=== PATIENT | female | born 1990 | race Caucasian/White ===

== ENCOUNTER 2022-08-09 20:36 | Emergency (ER) | payer OTHER, SELFPAY ==
--- NOTE | ~2022-08-09 | XR_ITS ---
EXAMINATION: AP PELVIS AND RIGHT HIP. LEFT SHOULDER. CLINICAL INFORMATION: Fall with shoulder pain and right hip pain. COMPARISON: None TECHNIQUE: AP pelvis and right hip 3 views. Left shoulder 3 views. FINDINGS: Left shoulder: There is no visible acute fracture, dislocation or subluxation seen. The glenohumeral and AC joint space is maintained normal. The soft tissues are normal. AP pelvis and right hip: There is normal symmetry of bilateral hip joints and SI joints. No visible acute fracture or dislocation seen. 2 views of right hip reveal no fracture or dislocation. The soft tissues are normal. XR/XR hip RT w PEL1V IMPRESSION: 1. Unremarkable left shoulder exam. 2. Unremarkable AP pelvis and right hip exam. No visible acute fracture or dislocation seen.
--- NOTE | ~2022-08-09 | XR_ITS ---
EXAMINATION: AP PELVIS AND RIGHT HIP. LEFT SHOULDER. CLINICAL INFORMATION: Fall with shoulder pain and right hip pain. COMPARISON: None TECHNIQUE: AP pelvis and right hip 3 views. Left shoulder 3 views. FINDINGS: Left shoulder: There is no visible acute fracture, dislocation or subluxation seen. The glenohumeral and AC joint space is maintained normal. The soft tissues are normal. AP pelvis and right hip: There is normal symmetry of bilateral hip joints and SI joints. No visible acute fracture or dislocation seen. 2 views of right hip reveal no fracture or dislocation. The soft tissues are normal. XR/XR shoulder LT min 2V IMPRESSION: 1. Unremarkable left shoulder exam. 2. Unremarkable AP pelvis and right hip exam. No visible acute fracture or dislocation seen.
--- NOTE | 2022-08-09 20:40 | ED_ITS ---
HPI - Fall General Chief Complaint: General Medical <EVELINA Melchor - Last Filed: 08/09/22 20:49> Stated Complaint: fall, shoulder pain <EVELINA Melchor - Last Filed: 08/09/22 20:49> Time Seen by Provider: 08/09/22 21:56 <EVELINA Melchor - Last Filed: 08/09/22 20:49> Source: patient <Saumya Soria MD - Last Filed: 08/09/22 22:10> Mode of arrival: ambulatory <Saumya Soria MD - Last Filed: 08/09/22 22:10> Limitations: no limitations <Saumya Soria MD - Last Filed: 08/09/22 22:10> History of Present Illness HPI Narrative: Patient comes to the emergency room complaining of right hip pain and left shoulder pain after falling down the stairs. Patient states that approximately 24 hours ago, patient was ready to go to work. Patient was walking down the stairs, her PJ hand caught in a nail on the stair rail and patient fell down the stairs. Patient did not lose consciousness, no headache, no blood thinners. 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 Patient denies numbness tingling in extremities. No headache, no neck pain. <Saumya Soria MD - Last Filed: 08/09/22 22:10> Related Data Home Medications: Previous Rx's Medication Instructions Recorded cyclobenzaprine 10 mg tablet 10 mg PO TID PRN muscle spasm #7 08/09/22 tabs ibuprofen 600 mg tablet 600 mg PO TID PRN pain #10 tabs 08/09/22 <EVELINA Melchor - Last Filed: 08/09/22 20:49> Allergies/Adverse Reactions: Allergies Allergy/AdvReac Type Severity Reaction Status Date / Time acetaminophen [From PERCOCET] Allergy Unknown UNKNOWN Unverified 02/13/20 19:51 oxycodone [From PERCOCET] Allergy Unknown UNKNOWN Unverified 02/13/20 19:51 <EVELINA Melchor - Last Filed: 08/09/22 20:49> Review of Systems Review of Systems: Constitutional : No Weight loss, No Fever, No Chills, No Night Sweats, No Fatigue, No Malaise ENT/Mouth : No Hearing loss, No Ear Pain, No Nasal Congestion, No Sinus Pain, No Hoarseness, No sore throat, No Rhinorrhea, No Swallowing Difficulty Eyes: No Eye Pain, No Swelling, No Redness, No Foreign Body, No Discharge, No Vision Changes Cardiovascular : No Chest Pain, No SOB, No Dyspnea on Exertion, No Orthopnea, No Edema, No Palpitations Respiratory : No Cough, No Sputum, No Wheezing, No Smoke Exposure, No Dyspnea Gastrointestinal : No Nausea, No Vomiting, No Diarrhea, No Constipation, No abdominal Pain, No Hematochezia, No Melena Genitourinary : no irregular bleeding, No Dysuria, No Urinary Frequency, No Hematuria, No Urinary Incontinence, No Urgency, No Flank Pain, No Urinary Flow Changes, No Hesitancy Musculoskeletal : Complaining of left shoulder pain and right hip pain, No Myalgias, No Joint Swelling Skin : No Skin Lesions, No rash Neuro : No Weakness, No Numbness, No Paresthesias, No Loss of Consciousness, No Dizziness, No Headache Psych : No Anxiety/Panic, No Depression, No SI/HI/AH/VH, No Social Issues, Heme/Lymph: No Bruising, No Bleeding,No Lymphadenopathy Endocrine : No Polyuria, No Polydipsia, No Temperature Intolerance <Saumya Soria MD - Last Filed: 08/09/22 22:10> [facility], [facility] Social History Social History: Social History Advance Directives: No Advance Directives Information Provided: Yes <EVELINA Melchor - Last Filed: 08/09/22 20:49> Physical Exam Vital Signs: Vital Signs: Last Vital Signs Temp 98.3 F 08/09/22 20:43 Pulse 73 08/09/22 20:43 Resp 18 08/09/22 20:43 BP 109/82 08/09/22 20:43 Pulse Ox 95 08/09/22 20:43 O2 Del Method 08/09/22 20:43 BMI result Body Mass Index 41.5 <EVELINA Melchor - Last Filed: 08/09/22 20:49> Vital Signs: Last Vital Signs Temp 98.3 F 08/09/22 20:43 Pulse 73 08/09/22 20:43 Resp 18 08/09/22 20:43 BP 109/82 08/09/22 20:43 Pulse Ox 95 08/09/22 20:43 O2 Del Method 08/09/22 20:43 BMI result Body Mass Index 41.5 <Saumya Soria MD - Last Filed: 08/09/22 22:10> Const: Other: Appearance: Alert. Oriented X3. No acute distress. Eyes: Pupils equal, round and reactive to light. ENT: Pharynx normal. Neck: Normal inspection. Neck supple. No lymph nodes noted. No crepitus CVS: Normal heart rate and rhythm. Pulses normal. Normal S1 and S2 Respiratory: No respiratory distress. Breath sounds normal. No Wheezing. No rales Abdomen: Soft and nontender. No rigidity. No distention. Skin: Skin warm and dry. Normal skin color. Normal skin turgor. Extremities: Patient is able to walk with normal gait. Patient is able to abduct the left arm up to 180 degrees Neuro: Oriented X 3. No motor deficit. No sensory deficit. Moving all extremities. No slurred speech. CN 2 through 12 grossly intact Psych: calm, cooperative, normal affect <Saumya Soria MD - Last Filed: 08/09/22 22:10> Course Course Course Narrative: RME--32-year-old female with no significant past medical history presenting to the ED complaining of L shoulder and R hip/lower back pain s/p falling down 10 stairs last night. Denies sx prior to fall. Admits to slightly hitting head, denies LOC or taking any AC. Denies incontinence or retention Ambulated with EMS & into triage +L shoulder ttp on exam, NV intact distally. No midline spinous ttp XRs ordered <EVELINA Melchor - Last Filed: 08/09/22 20:49> Medical Decision Making Medical Decision Making [facility] Narrative: -patient likely has a contusion, rotator cuff injury not suspected, fracture or dislocation not suspected. -x-rays of the hip and shoulder do not show any acute abnormalities. -patient given ibuprofen and Flexeril in the ED <Saumya Soria MD - Last Filed: 08/09/22 22:10> Differential Diagnosis Differential Diagnoses: The differential diagnosis associated with the presentation includes (Left shoulder contusion, versus fracture versus dislocation) <Saumya Soria MD - Last Filed: 08/09/22 22:10> Independent Interpretation I performed an independent interpretation of an: Plain X-Ray (Impression of x-rays of the left shoulder and hip: No fractures, no dislocation) <Saumya Soria MD - Last Filed: 08/09/22 22:10> Radiology Impression Discussion of test interpretation with radiology: I have reviewed the radiologist's reading. <Saumya Soria MD - Last Filed: 08/09/22 22:10> Radiologist Impression: FINDINGS: Left shoulder: There is no visible acute fracture, dislocation or subluxation seen. The glenohumeral and AC joint space is maintained normal. The soft tissues are normal. AP pelvis and right hip: There is normal symmetry of bilateral hip joints and SI joints. No visible acute fracture or dislocation seen. 2 views of right hip reveal no fracture or dislocation. The soft tissues are normal.? XR/XR hip RT w [id number] IMPRESSION: 1. ? Unremarkable left shoulder exam. 2.? Unremarkable AP pelvis and right hip exam. No visible acute fracture or dislocation seen. ? <Saumya Soria MD - Last Filed: 08/09/22 22:10> Discharge Plan Discharge Clinical Impression: Contusion <EVELINA Melchor - Last Filed: 08/09/22 20:49> Patient Disposition: Home, Self-Care <EVELINA Melchor - Last Filed: 08/09/22 20:49> Instructions: Contusion in Adults (ED) <EVELINA Melchor - Last Filed: 08/09/22 20:49> Additional Instructions: Please follow-up with your primary care physician tomorrow. If you have any worsening or new symptoms, please return to the emergency room or call 911 <EVELINA Melchor - Last Filed: 08/09/22 20:49> Prescriptions: New cyclobenzaprine 10 mg tablet 10 mg PO TID PRN (Reason: muscle spasm) Qty: 7 0RF ibuprofen 600 mg tablet 600 mg PO TID PRN (Reason: pain) Qty: 10 0RF <EVELINA Melchor - Last Filed: 08/09/22 20:49>
[2022-08-09 20:43] VITALS: BP 109/82; BP 130/86; PULSE 73; PULSE 84; RESP 18; TEMP 36.8; O2SAT 100; O2SAT 95; BMI 41.5
--- NOTE | 2022-08-09 21:49 | PC.NURSE ---
aox4 no apparent distress resting quietly
[2022-08-09] MEDS: Ibuprofen 600 MG TABLET PO (22:17)
[2022-08-09] MEDS: Cyclobenzaprine HCl 10 MG TABLET PO (22:18)
--- NOTE | 2022-08-09 22:26 | PC.NURSE ---
Discharge instructions given/explained to patient No apparent distress Ambulates safely/independently All of patient's questions answered pt p/u by cassie
== END 2022-08-09 22:26 | disposition home or self-care (01) ==
PROVIDERS: Emergency Provider Emergency Medicine
DX: S40.012A Contusion of left shoulder, initial encounter (principal); W10.8XXA Fall (on) (from) other stairs and steps, initial encounter; M25.551 Pain in right hip; Y93.89 Activity, other specified; Y92.039 Unspecified place in apartment as the place of occurrence of the external cause; Y99.9 Unspecified external cause status
CPT/HCPCS: 73030; 73502; 99283; 99284